=== PATIENT | male | born 1985 | race African-American/Black ===

== ENCOUNTER 2020-01-08 21:36 | Emergency (ER) | payer BC ==
[~2020-01-08] VITALS: Ht 185.4 cm; Wt 149.7 kg
[2020-01-08 22:39] LABS: URINE BILIRUBIN NEGATIVE (Negative); URINE BLOOD NEGATIVE (Negative); URINE CLARITY CLEAR; URINE COLOR YELLOW; URINE GLUCOSE-RANDOM NEGATIVE (Negative); URINE KETONES NEGATIVE (Negative); URINE LEUKOCYTES-REFLEX NEGATIVE (Negative); URINE NITRITE-REFLEX NEGATIVE (Negative); URINE PROTEIN 2+ (Negative); URINE SPECIFIC GRAVITY >= 1.030 (1.005-1.030); URINE UROBILINOGEN 0.2 E.U./dl (0.2-1.0)
[2020-01-08 22:47] LABS: HYALINE CASTS 0-3 Few /LPF (None Seen); SQUAMOUS NONE SEEN /LPF (0-3)
[2020-01-08 22:49] LABS: BACTERIA-REFLEX 1-9 Few /HPF (None Seen); CRYSTALS None Seen /LPF (None Seen); MUCUS 0-3 Light strn/LPF (None Seen); URINE RBC None Seen /HPF (0-2); URINE WBC-REFLEX 0-5 Rare /HPF (0-5)
[2020-01-08 23:17] LABS: AMP/METHAMP Negative (Negative); BARBITURATES Negative (Negative); BENZODIAZEPINES Negative (Negative); COCAINE Negative (Negative); METHADONE Negative (Negative); OPIATES Negative (Negative); PCP Negative (Negative); THC Negative (Negative)
[2020-01-08 23:25] LABS: ABSOLUTE LYMPHOCYTES 1.1 thou/uL (0.8-5.3); BASOPHILS 0.4 %; EOSINOPHILS 0.5 %; HEMATOCRIT 49.9 % (42.0-52.0); HEMOGLOBIN 16.1 gm/dL (14.0-18.0); LYMPHOCYTES 22.1 %; MCH 23.4 pg (26.0-34.0); MCHC 32.3 g/dL (28.0-37.0); MCV 72.4 fL (80.0-100.0); MONOCYTES 18.4 %; MPV 9.3 fl. (7.2-11.1); NUCLEATED RBCS 0 /100WBC; PLATELET COUNT* 188 thou/uL (150-400); POLYS 58.6 %; RBC 6.89 mil/uL (4.50-6.00); RDW-CV 15.5 % (10.5-14.5); WBC 5.2 thou/uL (4.0-11.0)
[2020-01-08 23:30] LABS: CALCIUM 8.9 mg/dL (8.5-10.1); CREATININE 1.7 mg/dL (0.6-1.3); POTASSIUM 4.2 mmol/L (3.5-5.1)
[2020-01-08 23:34] LABS: ALBUMIN 4.1 g/dL (3.4-5.0); TOTAL BILIRUBIN 0.3 mg/dL (<0.1-1.0)
[2020-01-09] MEDS ORDERED: HYDROCODON-ACE1 EAC8 PO (00:41)
[2020-01-09 00:55] VITALS: BP 147/82
== END 2020-01-09 00:55 | disposition home or self-care (01) ==
LOC: M.ERS 21:36
PROVIDERS: Emergency Medicine
DX: N23 Unspecified renal colic (principal); M54.5 Low back pain; I10 Essential (primary) hypertension; F17.210 Nicotine dependence, cigarettes, uncomplicated